=== PATIENT | male | born 1940 | race Caucasian/White ===

== ENCOUNTER 2020-02-17 06:40 | Day surgery (SDC) | payer MEDICARE, OTHER ==
[~2020-02-17] VITALS: Ht 172.7 cm; Wt 69.3 kg
[2020-02-17] VITALS (8 sets, daily range): BP systolic 112–121; BP diastolic 68–82
[~2020-02-17 06:40] MED LIST: FINA5TAB11 PO; MESSAGE TO NURSING IV ONE; ROSU5TAB PO; ceFAZolin 1GM/D5W- ADD-VANTAGE 50 ML IV ONE; famotidine 20mg tablet PO ONE; ringers solution, lacted 1,000 ML IV SCH
[2020-02-17] MEDS ORDERED: BUPIVAcaine/PF 2.5mg/ml (0.25%) 10ml vial ONE (07:07)
[2020-02-17] MEDS ORDERED: LIDOcaine 1% (10mg/ml) 2ml vial ONE (07:25)
[2020-02-17] MEDS ORDERED: LIDOcaine 1% 30ml preserv. free vial ONE (07:25)
[2020-02-17] MEDS ORDERED: ringers solution, lacted 1,000 ML IV SCH (07:52)
[2020-02-17 07:54] LABS: BASOPHILS # (AUTO) 0.1 X10'3 (0-0.2); EOSINOPHILS # (AUTO) 0.3 X10'3 (0-0.9); HEMOGLOBIN 13.1 g/dl (14.0-17.9); MONOCYTES # (AUTO) 0.4 X10'3 (0-0.9); MONOCYTES % (AUTO) 11.2 % (2-12); PLATELET COUNT 214 X10'3 (140-440); WHITE BLOOD COUNT 3.9 X10'3 (4.5-11.0)
[2020-02-17] MEDS ORDERED: meperidine/PF 25mg/ml syringe IV PRN ×3 (07:55)
[2020-02-17] MEDS ORDERED: ondansetron/PF 4mg/2ml inj IV PRN (07:55)
[2020-02-17] MEDS ORDERED: morphine 4 MG/ML inj SYRINge IV PRN (07:55)
[2020-02-17] MEDS ORDERED: morphine 2 MG/ML inj. syringe IV PRN (07:55)
[2020-02-17] MEDS ORDERED: proCHLORperazine 10 MG/2 ml inj IV PRN (07:55)
[2020-02-17 07:56] LABS: BASOPHILS % (AUTO) 2.1 % (0-1); HEMATOCRIT 39.4 % (42.0-52.0); MEAN CORPUSCULAR HEMOGLOBIN 29.5 PG (27.0-31.0); MEAN CORPUSCULAR HGB CONC 33.2 g/dL (33.0-36.5); MEAN CORPUSCULAR VOLUME 88.9 FL (78-98); MEAN PLATELET VOLUME 7.7 FL (7.4-10.4); NEUTROPHILS # (AUTO) 1.1 X10'3 (1.8-7.7); NEUTROPHILS % (AUTO) 27.7 % (42-75); RED BLOOD COUNT 4.43 X10'6 (4.70-6.10); RED CELL DISTRIBUTION WIDTH 14.7 % (11.5-14.5)
[2020-02-17 08:09] LABS: ALBUMIN 3.1 G/DL (3.4-5.0); ALKALINE PHOSPHATASE 48 IU/L (46-116); BLOOD UREA NITROGEN 18 MG/DL (7-18); BUN/CREATININE RATIO 23.7 (5.4-32.0); CALCIUM 8.9 MG/DL (8.5-10.1); CHLORIDE 108 MMOL/L (99-107); CREATININE 0.76 MG/DL (0.60-1.10); PRE OP ALT 28 U/L (30-65); PRE OP ANION GAP 6 (8-16); PRE OP AST 23 U/L (10-37); PRE OP BILIRUB, TOTAL 0.4 MG/DL (0.0-1.0); PRE OP GLUCOSE 92 MG/DL (70-104); PRE OP POTASSIUM 3.6 MMOL/L (3.4-5.1); PRE OP SODIUM 143 MMOL/L (135-145); TOTAL CARBON DIOXIDE 29.1 MMOL/L (24-32); TOTAL PROTEIN 6.3 G/DL (6.4-8.2); eGFR > 90 ML/MIN
[2020-02-17] MEDS ORDERED: fentaNYL/PF 50MCG/1 ML 2ML syringe ONE (08:49)
[2020-02-17] MEDS ORDERED: midazolam 2 mg/2 ml injection ONE (08:49)
[2020-02-17] MEDS ORDERED: ketorolac trometh. 30mg/ml inj. ONE (08:50)
--- NOTE | 2020-02-17 09:17 | NUR ---
Received from OR via [facility] , accompanied by Anesthesiologist GABRIELLE and report given by Anesthesiolgist. PATIENT WITH 20G PIV IN LEFT UE RUNNING LR AT 100. PATIENT DENIES PAIN. + CAP REFILL AND MOVEMENT TO RIGHT HAND. DRESSING TO RIGHT WRIST IS CDI. Addendum: 02/17/20 at 0984 by Sukhdev Matson RN, RN Amended: Links added.
--- NOTE | 2020-02-17 11:07 | NUR ---
ALL DC CRITERIA HAS BEEN MET. IV TAKEN OUT WITHOUT COMPLICATIONS. ALL INSTRUCTIONS COVERED AND ALL QUESTIONS ANSWERED. DRESSINGS CDI. OUT VIA WHEELCHAIR TO PERSONAL VEHICLE WHERE PATIENT WAS SECURED IN AND DRIVEN HOME BY FAMILY. Addendum: 02/17/20 at 1113 by Sukhdev Matson RN, RN Amended: Links added.
== END 2020-02-17 11:07 | disposition home or self-care (01) ==
LOC: PAS 06:40
PROVIDERS: ATTEND Orthopaedic Surgery Hand Surgery
DX: G56.01 Carpal tunnel syndrome, right upper limb (principal); I51.7 Cardiomegaly
CPT/HCPCS: 64721; 80053; 85025; 93005; J0690; J1885; J2001; J2250; J3010; J3490; A4215; A4615; J7120

== ENCOUNTER 2021-07-11 07:36 | Day surgery (SDC) | payer MEDICARE, OTHER ==
[~2021-07-11] VITALS: Ht 170.2 cm; Wt 67.5 kg
[2021-07-11] VITALS (8 sets, daily range): BP systolic 107–124; BP diastolic 60–87
[~2021-07-11 07:36] MED LIST changes: -MESSAGE TO NURSING IV ONE; -ceFAZolin 1GM/D5W- ADD-VANTAGE 50 ML IV ONE; -famotidine 20mg tablet PO ONE; -ringers solution, lacted 1,000 ML IV SCH
[2021-07-11 11:36] LABS: GLUCOSE,CSF 57 MG/DL (40-75); TOTAL PROTEIN,CSF 58 MG/DL (30-60)
[2021-07-11 12:09] LABS: APPEARANCE,CSF CLEAR; CSF RBC 1 /CU MM (0); CSF SUPERNATANT COLOR COLORLESS; CSF VOLUME 15 ML; CSF WBC CT 3 /CU MM (0-5); TUBE# COUNTED 4
[2021-07-17 16:39] LABS: LYME IGG P23 AB Absent (.); LYME IGG P28 AB Absent (.); LYME IGG P30 AB Absent (.); LYME IGG P41 AB Absent (.); LYME IGG P45 AB Absent (.); LYME IGG P58 AB Absent (.); LYME IGG P66 AB Absent (.); LYME IGG P93 AB Absent (.); LYME IGG WB INTERP Negative (.); LYME IGM P23 AB Absent (.); LYME IGM P39 AB Absent (.); LYME IGM P41 AB Absent (.); LYME IGM WB INTERP Negative (.); VDRL, CSF Non Reactive (Non Rea:<1:1)
== END 2021-07-11 13:15 | disposition home or self-care (01) ==
LOC: SSTAY O 07:36
PROVIDERS: ATTEND Psychiatry & Neurology Neurology
DX: G61.0 Guillain-Barre syndrome (principal); G62.9 Polyneuropathy, unspecified; M21.372 Foot drop, left foot; M21.371 Foot drop, right foot; Z79.899 Other long term (current) drug therapy
CPT/HCPCS: 62328; 82164; 82945; 84157; 86592; 86617; 89051; C1769; 36415; 77003; 88108

== ENCOUNTER 2021-07-24 11:28 | Outpatient (CLI) | payer MEDICARE, OTHER ==
[~2021-07-24 11:28] MED LIST changes: -ROSU5TAB PO
== END 2021-07-24 23:59 | disposition home or self-care (01) ==
LOC: RAD 11:28
PROVIDERS: ATTEND Psychiatry & Neurology Neurology
DX: D47.2 Monoclonal gammopathy (principal)
CPT/HCPCS: 77075